=== PATIENT | female | born 1990 ===

== ENCOUNTER 2016-09-12 13:46 | Emergency (ER) | payer SELFPAY ==
[2016-09-12 13:47] VITALS: BMI 36.5
[2016-09-12 14:03] VITALS: O2SAT 100
[2016-09-12] MEDS ORDERED: Sodium Chloride 0.9% 1,000 ML IV ONE (14:19)
--- NOTE | 2016-09-12 14:24 | C.PDOC ---
History Of Present Illness 26 yr old female presents to the ER with complaints of abdominal pain and vaginal bleeding for the past 4 days. Patient reports of a positive test at home. Reports history of 2 c-sections in the past. LMP was 5/5. Patient denies fever, chest pain, SOB, nausea, vomiting, diarrhea, weakness or numbness. Time Seen by Provider: 09/12/16 14:08 Chief Complaint (Nursing): Female Genitourinary History Per: Patient History/Exam Limitations: no limitations Onset/Duration Of Symptoms: Days (4) Past Medical History Reviewed: Historical Data, Nursing Documentation, Vital Signs Vital Signs: Last Vital Signs Temp 97.5 F L 09/12/16 17:40 Pulse 72 09/12/16 17:40 Resp 18 09/12/16 17:40 BP 101/62 09/12/16 17:40 Pulse Ox 100 09/12/16 17:40 Family History: States: No Known Family Hx - Social History Hx Alcohol Use: No Hx Substance Use: No - Immunization History Hx Influenza Vaccination: No Hx Pneumococcal Vaccination: No Review Of Systems Except As Marked, All Systems Reviewed And Found Negative. Constitutional: Negative for: Fever Cardiovascular: Negative for: Chest Pain Respiratory: Negative for: Shortness of Breath Gastrointestinal: Positive for: Abdominal Pain. Negative for: Nausea, Vomiting , Diarrhea Genitourinary: Positive for: Vaginal Bleeding Neurological: Negative for: Weakness, Numbness Physical Exam - Physical Exam Appears: Well, Non-toxic, No Acute Distress Skin: Warm, Dry, No Rash Head: Atraumatic, Normacephalic Oral Mucosa: Moist Chest: Symmetrical, No Tenderness Cardiovascular: Rhythm Regular, No Murmur Respiratory: Normal Breath Sounds, No Rales, No Rhonchi, No Wheezing Gastrointestinal/Abdominal: Soft, Tenderness (superpubic area), No Guarding, No Rebound Extremity: Normal ROM, No Swelling Neurological/Psych: Oriented x3, Normal Speech, Normal Motor ED Course And Treatment - Laboratory Results Result Diagrams: 09/12/16 08:48 09/12/16 08:48 Lab Interpretation: Normal Urine POC: Positive O2 Sat by Pulse Oximetry: 100 - CT Scan/US US - Transvaginal Other Rad Studies (CT/US): Read By Radiologist, Radiology Report Reviewed CT/US Interpretation: PROCEDURE: OB Pelvic Ultrasound. HISTORY: bleeding. COMPARISON: None available. FINDINGS: UTERUS: There is a twin intrauterine gestation. Fetus a: heart rate 113 beats per minute. Gestational sac diameter equivalent to 6 weeks 4 days. [place]-rump length equivalent to 5 weeks 6 days. Average ultrasound age 6 weeks 2 days. Fetus B: heart rate 114 beats per minute. Gestational sac diameter equivalent to 6 weeks 4 days new line crown-rump length equivalent to 5 weeks 6 days. Average ultrasound age is 6 weeks 2 days. There is no subchorionic hemorrhage identified. Uterus measures 10.8 x 5.3 x 5.0 cm. No mass. CERVIX: Long and closed. No cervical abnormality seen. RIGHT OVARY: Not identified. LEFT OVARY: Measures 2.9 x 1.8 x 2.2 cm. No mass. Normal flow. FREE FLUID: None. OTHER FINDINGS: None. IMPRESSION: Twin live intrauterine gestation of approximately 6 weeks 2 days. No subchorionic hemorrhage identified. Cervix long and closed. Unremarkable left ovary. Right ovary not visualized. Progress Note: On re-evaluation abdomen soft. Discharge in stable condition Reassessment Condition: Improved Medical Decision Making Medical Decision Making: PLAN: * US - Transvaginal * CBC * BETA * Urinalysis * Sodium Chloride IV Disposition Counseled Patient/Family Regarding: Studies Performed, Diagnosis, Need For Followup - Disposition Referrals: [facility] [Outside] [facility] [Outside] Disposition: HOME/ ROUTINE Disposition Time: 17:00 Condition: STABLE Additional Instructions: Follow up with your OB or clinic for further evaluation Instructions: (ED), Abdominal Pain (ED) - POA Present On Arrival: None - Clinical Impression Clinical Impression: - PA / RN IV THERAPY / Resident Statement MD/DO has reviewed & agrees with the documentation as recorded. - Scribe Statement The provider has reviewed the documentation as recorded by the Scribe Lidia Stiles All medical record entries made by the Lacey were at my direction and personally dictated by me. I have reviewed the chart and agree that the record accurately reflects my personal performance of the history, physical exam, medical decision making, and the department course for this patient. I have also personally directed, reviewed, and agree with the discharge instructions and disposition.
[2016-09-12] MEDS ORDERED: Sodium Chloride 0.9% 1,000 ML ONE (14:44)
[2016-09-12 14:48] LABS: RBC URINE 1 /hpf (0-3); URINE BACTERIA RARE (<OCC); URINE BILIRUBIN NEGATIVE (NEGATIVE); URINE BLOOD NEGATIVE (NEGATIVE); URINE COLOR Yellow (YELLOW); URINE GLUCOSE (UA) NORMAL (Normal); URINE KETONE NEGATIVE (NEGATIVE); URINE LEUKOCYTE ESTERASE TRACE Leu/uL (Negative); URINE PROTEIN NEGATIVE (NEGATIVE); URINE UROBILINOGEN NORMAL mg/dL (0.2-1.0); WBC URINE 4 /hpf (0-5)
[2016-09-12 15:00] LABS: BASO # 0.1 K/uL (0.0-0.2); BASO % 0.5 % (0.0-2.0); EOS # 0.2 K/uL (0.0-0.7); EOS % 1.5 % (0.0-4.0); HEMATOCRIT 37.3 % (34.0-47.0); LYMPH # 1.9 K/uL (1.0-4.3); LYMPH % 16.6 % (20.0-40.0); MEAN CELL VOLUME 80.8 fL (81.0-99.0); MEAN CORPUSCULAR HGB CONC 32.1 g/dL (33.0-37.0); MEAN PLATELET VOLUME 8.9 fL (7.2-11.7); MONO # 1.1 K/uL (0.0-0.8); MONO % 9.5 % (0.0-10.0); RED CELL DISTRIBUTION WIDTH 14.5 % (11.5-14.5); WHITE BLOOD COUNT 11.4 K/uL (4.8-10.8)
[2016-09-12 15:14] LABS: CHLORIDE 101 mmol/L (98-107); POTASSIUM 3.6 mmol/L (3.6-5.2); SODIUM 136 mmol/L (132-148)
[2016-09-12 15:17] LABS: BLOOD UREA NITROGEN 8 mg/dL (7-17); CARBON DIOXIDE 25 mmol/L (22-30); GFR AFRICAN-AMERICAN > 60; GLUCOSE,RANDOM 93 mg/dL (65-105)
--- NOTE | 2016-09-12 16:28 | US ---
PROCEDURE: OB Pelvic Ultrasound HISTORY: bleeding COMPARISON: None available. FINDINGS: UTERUS: There is a twin intrauterine gestation. Fetus a: heart rate 113 beats per minute Gestational sac diameter equivalent to 6 weeks 4 days [place]-rump length equivalent to 5 weeks 6 days Average ultrasound age 6 weeks 2 days Fetus B: heart rate 114 beats per minute Gestational sac diameter equivalent to 6 weeks 4 days new line crown-rump length equivalent to 5 weeks 6 days Average ultrasound age is 6 weeks 2 days There is no subchorionic hemorrhage identified Uterus measures 10.8 x 5.3 x 5.0 cm. No mass CERVIX: Long and closed. No cervical abnormality seen. RIGHT OVARY: Not identified LEFT OVARY: Measures 2.9 x 1.8 x 2.2 cm. No mass. Normal flow. FREE FLUID: None. OTHER FINDINGS: None. IMPRESSION: Twin live intrauterine gestation of approximately 6 weeks 2 days. No subchorionic hemorrhage identified. Cervix long and closed. Unremarkable left ovary. Right ovary not visualized.
[2016-09-12 17:41] VITALS: BP 101/62; PULSE 72; RESP 18; TEMP 97.5
== END 2016-09-12 17:41 | disposition home or self-care (01) ==
LOC: C.ER 13:46
DX: O26.891 Other specified pregnancy related conditions, first trimester (principal); Z3A.01 Less than 8 weeks gestation of pregnancy
CPT/HCPCS: 76805; 76817; 80048; 81001; 84702; 84703; 85025; 86850; 86900; 96360; 99284; J7040